=== PATIENT | female | born 2000 | race Caucasian/White ===

== ENCOUNTER 2019-06-24 12:44 | Emergency (ER) | payer BC, OTHER ==
[2019-06-24] MEDS ORDERED: NORMAL SALINE 1000 ML 1,000 ML IV ONE (12:59)
[2019-06-24] MEDS ORDERED: ONDANSETRON HCL INJ/PF 4 MG/2 ML SDV IV ONE (12:59)
--- NOTE | 2019-06-24 13:00 | ER Document Report ---
ED Medical Screen (RME) - General Chief Complaint: General Weakness Stated Complaint: DIZZINESS Time Seen by Provider: 06/24/19 12:55 Mode of Arrival: Ambulatory Information source: Patient Notes: Patient presents complaining of feeling hot, shaky and lightheaded. Patient states she had an episode 2 days ago and then another episode today. Patient does report nausea. Patient states that when she has the symptoms her vision gets fuzzy. Patient states that she is also felt tired. Patient denies any chest discomfort. I have greeted and performed a rapid initial assessment of this patient. A comprehensive ED assessment and evaluation of the patient, analysis of test results and completion of the medical decision making process will be conducted by additional ED providers. - Related Data Allergies/Adverse Reactions: pineapple Allergy (Verified 06/24/19 12:53) Physical Exam - Vital signs Vitals: Temp Pulse Resp BP Pulse Ox 98.2 F 116 H 16 127/80 H 98 06/24/19 12:48 06/24/19 12:48 06/24/19 12:48 06/24/19 12:48 06/24/19 12:48 - General General appearance: Alert, Anxious - Cardiovascular Rhythm: Tachycardia Heart sounds: S1 appreciated, S2 appreciated Murmur: No Course - Vital Signs Vital signs: Temp Pulse Resp BP Pulse Ox 98.2 F 116 H 16 127/80 H 98 06/24/19 12:48 06/24/19 12:48 06/24/19 12:48 06/24/19 12:48 06/24/19 12:48
[2019-06-24 13:33] LABS: ABSOLUTE EOSINOPHILS # (AUTO) 0.1 10^3/uL (0.0-0.6); ABSOLUTE LYMPHOCYTES (AUTO) 1.5 10^3/uL (0.5-4.7); ABSOLUTE MONOCYTES (AUTO) 0.3 10^3/uL (0.1-1.4); BASOPHILS % (AUTO) 0.7 % (0-2); HEMOGLOBIN 13.6 g/dL (12.0-15.5); LYMPHOCYTES % (AUTO) 25.1 % (13-45); MEAN CORPUSCULAR HEMOGLOBIN 28.6 pg (27.0-33.4); MEAN CORPUSCULAR HGB CONC 34.7 g/dL (32.0-36.0); MEAN CORPUSCULAR VOLUME 82 fl (80-97); MONOCYTES % (AUTO) 5.4 % (3-13); PLATELET COUNT 269 10^3/uL (150-450); RED BLOOD COUNT 4.74 10^6/uL (3.72-5.28); RED CELL DISTRIBUTION WIDTH 12.9 % (11.5-14.0); SEGMENTED NEUTROPHILS % (AUTO) 66.8 % (42-78); TOTAL CELLS COUNTED % (AUTO) 100 %
[2019-06-24 13:47] LABS: ANION GAP 10 (5-19); BLOOD UREA NITROGEN 16 mg/dL (7-20); CALCIUM 9.9 mg/dL (8.4-10.2); CARBON DIOXIDE 26 mmol/L (22-30); CHLORIDE 105 mmol/L (98-107); GLUCOSE 98 mg/dL (75-110)
[2019-06-24 14:01] LABS: APPEARANCE,URINE CLEAR; BILIRUBIN,URINE NEGATIVE (NEGATIVE); COLOR,URINE COLORLESS; GLUCOSE, URINE NEGATIVE (NEGATIVE); KETONES,URINE NEGATIVE (NEGATIVE); LEUKOCYTE ESTERASE,URINE NEGATIVE (NEGATIVE); NITRITE,URINE NEGATIVE (NEGATIVE); PROTEIN,URINE NEGATIVE (NEGATIVE); URINE SPECIFIC GRAVITY 1.002; UROBILINOGEN,URINE NEGATIVE mg/dL (<2.0)
--- NOTE | 2019-06-24 16:13 | ER Document Report ---
ED Dizziness/Weakness - General Chief Complaint: Near Syncope Stated Complaint: DIZZINESS Time Seen by Provider: 06/24/19 12:55 Primary Care Provider: PREMA BLACKBURN NP [Primary Care Provider] - Follow up as needed Mode of Arrival: Ambulatory Information source: Patient Notes: 19-year-old female presents to the emergency department with a complaint of episode of shakiness with feeling dizzy and lightheaded with associated nausea. States that she has had 3 episodes since May in which she suddenly began feeling shaky and dizzy. Episodes lasted for about 5 minutes however, the episode today was longer and associated with nausea. She was driving at the [employer] and had to pull off the road. 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 She denies any associated medical problems and does admit to the stress of taking care of a [id number] and also maintaining a household alone. - Related Data Allergies/Adverse Reactions: pineapple Allergy (Verified 06/24/19 12:53) Past Medical History - General Information source: Patient - Social History Smoking Status: Never Smoker Frequency of alcohol use: None Drug Abuse: None Family History: Reviewed & Not Pertinent Patient has suicidal ideation: No Patient has homicidal ideation: No Review of Systems - Review of Systems Notes: Constitutional: Negative for fever. HENT: Negative for sore throat. Eyes: Negative for visual changes. Cardiovascular: Negative for chest pain. Respiratory: Negative for shortness of breath. Gastrointestinal: Negative for abdominal pain, vomiting or diarrhea. Genitourinary: Negative for dysuria. Musculoskeletal: Negative for back pain. Skin: Negative for rash. Neurological: + Dizziness, + shakiness, + lightheadedness 10 point ROS negative except as marked above and in HPI. Physical Exam - Vital signs Vitals: Temp Pulse Resp BP Pulse Ox 98.2 F 116 H 16 127/80 H 98 06/24/19 12:48 06/24/19 12:48 06/24/19 12:48 06/24/19 12:48 06/24/19 12:48 - Notes Notes: PHYSICAL EXAMINATION: Physical Exam: General: Well-nourished well-developed female in no acute distress HEENT: NC/AT, pupils equal round and reactive to light, MM moist,nares clear, Neck: supple, no adenopathy, no masses. Lungs: clear, no wheezing, no rales no rhonchi CVS: Regular rate and rhythm no murmur gallop or rub Abdomen: Soft active nontender, no masses, no hepatosplenomegaly Ext: No edema clubbing or cyanosis. Neuro: Alert and responsive, moving all 4 extremities on command, cranial nerves intact. Skin: Intact no open lesions, no rash PSYCH: Normal mood, normal affect. Course - Re-evaluation Re-evalutation: 06/24/19 16:32 Patient is feeling much better apparently was given a liter normal saline and Zofran in the emergency department. Review of her laboratory data reveals no abnormalities on the CBC BMP or urine. test was negative. I have reviewed these findings with the patient explained to her that this very well may be a stress related reaction and that she will need follow-up with a physician/provider who can discuss behavioral interventions that might be useful. The patient acknowledges understanding of this plan and is in agreement. - Vital Signs Vital signs: Temp Pulse Resp BP Pulse Ox 98.3 F 80 16 112/60 100 06/24/19 17:04 06/24/19 17:04 06/24/19 17:04 06/24/19 17:04 06/24/19 17:04 - Laboratory Result Diagrams: 06/24/19 13:18 06/24/19 13:18 Laboratory results interpreted by me: 06/24/19 13:18 Urine Blood SMALL H Discharge - Discharge Clinical Impression: Shakiness, Episode of dizziness Disposition: HOME, SELF-CARE Instructions: Anxiety ([facility]), Panic Attack ([facility]) Additional Instructions: You were seen today for a possible panic attack. Follow-up with your primary doctor or mental health provider regarding today's ED visit. Referrals: PREMA BLACKBURN NP [Primary Care Provider] - Follow up as needed
[2019-06-24 17:06] VITALS: BP 112/60
--- NOTE | 2019-06-24 19:25 | EKG REPORT ---
SEVERITY:- ABNORMAL ECG - SINUS RHYTHM INCOMPLETE RIGHT BUNDLE BRANCH BLOCK : Confirmed by: Alexandrea Aviles MD 24-Jun-2019 19:24:38
== END 2019-06-24 17:04 | disposition home or self-care (01) ==
LOC: ER 12:44
DX: R55 Syncope and collapse (principal); R42 Dizziness and giddiness; R25.9 Unspecified abnormal involuntary movements; R11.0 Nausea
CPT/HCPCS: 93005; 99284; 96361; 96374; 36415; 84703; 85025; 80048; 81001; 93010; J2405; J7030